=== PATIENT | male | born 1960 | race Caucasian/White ===

== ENCOUNTER 2021-04-24 15:24 | Emergency (ER) | payer BC ==
[2021-04-24 16:31] LABS: HBSAB Concentration Less than 8.00 mIU/mL; HIV (1/2) Antibody/Antigen Non-Reactive (NonReactive); HIV 1/2 INDEX 0.09 S/CO (<1.00); Hep B Surf AB Non-Reactive (NonReactive)
[2021-04-24 17:44] LABS: Hep C IgG Ab Reflex HepC Qnt (NonReactive)
== END 2021-04-24 16:20 | disposition home or self-care (01) ==
LOC: ERS 15:24
DX: S60.412A Abrasion of right middle finger, initial encounter (principal); F17.210 Nicotine dependence, cigarettes, uncomplicated; W26.9XXA Contact with unspecified sharp object(s), initial encounter; Y92.149 Unspecified place in prison as the place of occurrence of the external cause; Z77.21 Contact with and (suspected) exposure to potentially hazardous body fluids
CPT/HCPCS: 36415; 86706; 86803; 87389; 87522; 99283